=== PATIENT | female | born 1985 | race Caucasian/White ===

== ENCOUNTER 2022-05-12 23:56 | Emergency (ER) | payer MEDICAID, SELFPAY ==
[2022-05-12 23:57] VITALS: BP 158/97; PULSE 74; RESP 15; TEMP 36.8; O2SAT 95; BMI 33.1
--- NOTE | 2022-05-13 00:15 | CT_ITS ---
STUDY: CT ABDOMEN AND PELVIS WITHOUT CONTRAST REASON FOR EXAM: Female, 36 years old. Right flank pain. Elevated white blood cell count. Status post cholecystectomy and left oophorectomy. TECHNIQUE: Transaxial images were obtained from the dome of the diaphragm to the symphysis pubis without oral contrast, and without intravenous contrast. Sagittal and coronal images were reconstructed. Individualized dose optimization techniques were used for this CT. COMPARISON: None. FINDINGS: Partially visualized lower chest: Lung bases unremarkable. Liver: No concerning lesions. Gallbladder and biliary tree: Status post cholecystectomy. No biliary ductal dilation. No visible gallstones. Pancreas: No pancreatic lesions or inflammation. Spleen: Normal size, no splenic lesions. Adrenal glands: No concerning masses. Kidneys and ureters: No hydronephrosis or renal stones. No concerning masses. No ureteral dilation. Bowel: Normal appendix. No obstruction or inflammation of the bowel. Urinary bladder: Nondistended. No apparent stones or filling defects. Reproductive: Uterus unremarkable. Neither ovary identified. No suspicious pelvic mass. Vascular: No abdominal aortic aneurysm. Retroperitoneal and peritoneal spaces: Trace fluid in the pelvis within physiologic limits. No free air or extraluminal air or abscess. No adenopathy. Osseous: No acute osseous abnormality. Abdominal and pelvic wall: No concerning findings. Any findings described in the findings sections and not included in the impression are incidental and do not require imaging follow-up. CT/Abdomen/Pelvis without Cont IMPRESSION: No acute or concerning findings. Electronically Signed: Hari Mancuso MD at 1:34 EDT Reading Location ID and State: [facility] / [place] Tel , Service support ,
--- NOTE | 2022-05-13 00:23 | EDS_ITS ---
HPI HPI - GI History of Present Illness Chief Complaint: Flank Pain Informant: patient Abdominal Pain/Flank Pain Onset: Today Context: - (Awoke with symptoms) Timing: Continuous Quality: Aching Location: Right Flank (Mostly in back) Current Severity: Severe Maximum Severity: Severe Worsened by: Nothing Relieved by: Nothing Nausea/Vomiting/Emesis GI Symptom: Positive for Nausea and Vomiting Onset: Today Quality: Positive for Nonbilious Severity: Moderate Diarrhea/Melena/Hematochezia GI Symptom: Negative for Diarrhea, Melena or Hematochezia Associated Symptoms Associated Symptoms: Negative for Dysuria, Frequency, Hematuria or Urgency Narrative Narrative: Patient woke up with right back pain that feels like kidney pain that she has had in the past with pyelonephritis. No history of stones. She states that in the past, she has had multiple kidney infections, she has the same symptoms that she does today which is pain in her back, nausea, vomiting, and no urinary symp toms. She states her urine is darker than usual but otherwise unremarkable, no dysuria or urinary frequency/urgency. She states she has a little bit of discomfort in her right lower quadrant, but that usually goes away after she urinates, she gets that pain all the time when she holds it even when she is not having the symptoms she has been having today. [facility] Medical History (Updated 05/13/22 @ 01:[address] Fernando Jones MD) Borderline personality disorder delivery delivered Fibromyalgia Generalized anxiety disorder Hypoglycemia Medical History no medical history no medical history Home Medications hydroxyzine HCl 25 mg tablet 25 mg PO 4X/DAY PRN Anxiety 05/13/22 [History Last Taken Unknown] ondansetron 4 mg disintegrating tablet 8 mg PO Q8H PRN PRN Nausea #20 tabs 05/13/22 [Rx Last Taken Unknown] quetiapine 25 mg tablet (Seroquel) 25 mg PO DAILY 05/13/22 [History Last Taken Unknown] venlafaxine 75 mg tablet 75 mg PO DAILY 05/13/22 [History Last Taken Unknown] Allergy/AdvReac Type Severity Reaction Status Date / Time codeine Allergy Anaphylaxis Verified 05/13/22 00:11 hydrocodone [From Vicodin] Allergy Shortness Verified 05/13/22 00:11 of breath acetaminophen [From Tylenol] AdvReac Hives Verified 05/13/22 00:11 meperidine [From Demerol] AdvReac Rash Verified 05/13/22 00:11 oxycodone [From Percocet] AdvReac Rash Verified 05/13/22 00:11 promethazine [From Phenergan] AdvReac Hives Verified 05/13/22 00:11 Surgical History (Updated 05/13/22 @ 00:50 by Annie Dwyer) History of unilateral oophorectomy Hx of cholecystectomy Social History Smoking Status: Current every day smoker tobacco type: cigarettes ROS ROS ED Constitutional Constitutional ED: Denies chills or fever(s) Eyes Eyes: Denies change in vision or diplopia ENT ENT ED: Denies rhinorrhea or sore throat Cardiovascular Cardiovascular: Denies chest pain or palpitations Respiratory/Chest Respiratory/Chest: Denies cough or dyspnea Gastrointestinal Gastrointestinal: Reports abdominal pain, nausea and vomiting; Denies diarrhea Genitourinary Genitourinary ED: Reports as per HPI and flank pain; Denies dysuria, hematuria or urinary frequency Musculoskeletal Musculoskeletal: Reports back pain; Denies neck pain Integumentary Denies abscess or rash Neurologic Neurologic: Denies headache(s), paresthesias or weakness Psychiatric Psychiatric: Denies anxiety or suicidal thoughts EXAM Physical Exam Const Vital Signs: 05/12/22 23:57 05/13/22 00:09 Temperature 98.2 F Temperature Source Temporal Pulse Rate 74 Respiratory Rate 15 Respiratory Effort Normal Non-Labored Respiratory Pattern Normal Blood Pressure 158/97 H Blood Pressure Mean 117 Pulse Ox 95 Oxygen Delivery Method Room Air Positive well nourished, well developed and obese General Appearance ED: well developed and NAD Nutritional Appearance: obese HEENT Reports moist mucous membranes normocephalic and atraumatic Eyes PERRL and EOMs intact bilaterally Neck full ROM and supple Resp normal respiratory effort and clear to auscultation bilaterally Cardio regular rate, regular rhythm and no murmurs GI non-tender and non-distended Auscultation: normoactive bowel sounds Palpation: soft Back/Spine General Back: CVA tenderness right and other FROM Extremity normal to inspection General Extremety ED: Negative for edema, pulses abnormal or tenderness General Extremity: Negative for edema or pulses abnormal Neuro oriented x3, CN's II-XII intact bilaterally and no sensory deficits noted Sensorium / Orientation: awake and alert Motor Exam: strength 5/5 throughout Skin no rashes or lesions noted and no wounds MDM MDM MDM Narrative Medical decision making narrative: Patient symptoms were treated with fluids, Toradol, Zofran. She had improvement. She does have a leukocytosis, there are no bands, is neg ative, we did a CT scan because her urine really is unremarkable, and the CT is normal. Certainly she could have passed a stone before the pictures, or she has early pyelonephritis, there are 2+ bacteria on the urinalysis but this was a clean-catch specimen and there is very little in the way of markers for infection. Because of her leukocytosis I think it is reasonable to give her a single dose of Rocephin which will give her 24-hour coverage against the possibility of infection, and sent a culture. I am not sending her home on any antibiotics because it does not appear infected, unless the culture returns positive then she will be contacted. Lab Data Attestation: I reviewed the patient's lab results. Labs: Laboratory Results - last 24 hr 05/13/22 05/13/22 05/13/22 00:40 00:40 00:40 WBC 14.3 H RBC 5.48 H Hgb 13.0 Hct 41.4 MCV 75.5 L MCH 23.7 L MCHC 31.4 L RDW Std Deviation 45.1 H RDW Coeff of Jovita 16.9 H Plt Count 200 MPV 13.3 H Immature Gran % (Auto) 0.300 Neut % (Auto) 71.2 H Lymph % (Auto) 20.7 [place] % (Auto) 6.5 Eos % (Auto) 1.1 Baso % (Auto) 0.2 Absolute Neuts (auto) 10.2 H Absolute Lymphs (auto) 2.96 Nucleated RBC % 0 Sodium 140 Potassium 3.4 L Chloride 112 H Carbon Dioxide 23.0 Anion Gap 5 BUN 11 Creatinine 0.69 Estim Creat Clear Calc 92.34 Est GFR (MDRD) Af Amer 123 Est GFR (MDRD) Non-Af 102 BUN/Creatinine Ratio 16.0 Glucose 94 Calcium 8.8 Serum , Qual NEGATIVE Urine Color Urine Clarity Urine pH Ur Specific [place] Urine Protein Urine Glucose (UA) Urine Ketones Urine Occult Blood Urine Nitrite Urine Bilirubin Urine Urobilinogen Ur Leukocyte Esterase Urine RBC Urine WBC Ur Squamous Epith Cells Amorphous Sediment Urine Bacteria Urine Mucus 05/13/22 00:40 WBC RBC Hgb Hct MCV MCH MCHC RDW Std Deviation RDW Coeff of [place] Plt Count MPV Immature Gran % (Auto) Neut % (Auto) Lymph % (Auto) [place] % (Auto) Eos % (Auto) Baso % (Auto) Absolute Neuts (auto) Absolute Lymphs (auto) Nucleated RBC % Sodium Potassium Chloride Carbon Dioxide Anion Gap BUN Creatinine Estim Creat Clear Calc Est GFR (MDRD) Af Amer Est GFR (MDRD) Non-Af BUN/Creatinine Ratio Glucose Calcium Serum , Qual Urine Color Yellow Urine Clarity Clear Urine pH 5.0 Ur Specific [place] 1.020 Urine Protein Negative Urine Glucose (UA) Normal Urine Ketones 15 H Urine Occult Blood 10 H Urine Nitrite Negative Urine Bilirubin Negative Urine Urobilinogen Normal Ur Leukocyte Esterase 25 H Urine RBC 0-5 SEEN Urine WBC 0-5 SEEN Ur Squamous Epith Cells 5-10 SEEN Amorphous Sediment RARE Urine Bacteria 2+ Urine Mucus 2+ Radiography Diagnostic Testing: Clinical Impression(s) from Imaging Studies Abdomen/Pelvis CT 05/13/22 00:15 IMPRESSION: No acute or concerning findings. Electronically Signed: Hari Mancuso MD at 1:34 EDT Reading Location ID and State: [address] [place] [address] Tel , Service support , Discharge Plan Triage Chief Complaint: Flank Pain ED Provider: Fernando Jones Dx/Rx/DC Orders Clinical Impression: Acute right flank pain Instructions: ED Flank Pain, Uncertain Cause Prescriptions: New ondansetron [ondansetron] 4 MG tablet 8 mg PO Q8H PRN PRN (Reason: Nausea) Qty: 20 0RF No Action quetiapine [Seroquel] 25 mg Tablet 25 mg PO DAILY venlafaxine [Effexor] 75 mg Tablet 75 mg PO DAILY hydroxyzine HCl 25 mg Tablet 25 mg PO 4X/DAY PRN (Reason: Anxiety) Primary Care Provider: Care Physician,No Primary Referrals: Care Physician,No Primary [Primary Care Provider] - Doctor,Your [Non-Staff] - 3-5 Days if not improving Activity Restrictions/Additional Instructions: Ibuprofen and/or Tylenol as needed for pain Disposition Disposition: Home, Self Care
[2022-05-13] MEDS: Ondansetron 4 MG/2 ML Vial IV (00:26)
[2022-05-13] MEDS: Ketorolac 30 MG/ML Syringe IV (00:32)
[2022-05-13] MEDS: 0.9% Normal Saline 1,000 ML 250 ML IV (00:37)
[2022-05-13 00:45] LABS: Absolute Lymphocyte Count 2.96 X10^3/uL (0.83-4.51); Absolute Neutrophil Count 10.2 X10^3/uL (2.0-7.7); Basophil# 0.03 X10^3/uL; Basophil% 0.2 % (0-1); Eosinophil# 0.16 X10^3/uL; Eosinophils% 1.1 % (0-5); Hematocrit 41.4 % (37-47); Lymphocyte # 2.96 X10^3/ul (0.83-4.51); Lymphocyte % 20.7 % (19-41); Mean Corp Hgb Conc 31.4 g/dL (32-36); Mean Corpuscular Hgb 23.7 pg (27.0-32.0); Mean Corpuscular Volume 75.5 fL (81-99); Mean Platelet Vol. 13.3 fl (6.2-12.0); Monocyte# 0.93 X10^3/uL; Monocyte% 6.5 % (0-10); NRBC Flagged by Analyzer 0 % (0-5); Neutrophil # 10.18 X10^3/uL (2.7-7.7); Neutrophil % 71.2 % (47-70); Platelet Count 200 K/mm3 (150-450); RBC Distribution Width CV 16.9 % (11.6-14.6); RBC Distribution Width SD 45.1 fl (35.1-43.9); Red Blood Count 5.48 M/mm3 (4.2-5.4); White Blood Count 14.3 K/mm3 (4.4-11.0)
[2022-05-13 00:48] LABS: Color, Urine Yellow (Yellow); Glucose, Dipstick Normal (Normal); Ketone-Dipstick 15 mg/dl (Negative); Leukocyte Esterase-Dipstick 25 /ul (Negative); Nitrite-Dipstick Negative (Negative); Occult Blood-Urine 10 /ul (Negative); Protein-Dipstick Negative (Negative); Urine Bilirubin Dipstick Negative (Negative); Urine Clarity Clear (Clear); Urine Urobilinogen Normal (Normal)
[2022-05-13 00:51] LABS: Internal QC Validated? YES +Cl - CLEAR BKGD; Pregnancy, Serum, hCG Quali. NEGATIVE Negative
[2022-05-13 00:54] LABS: Amorphous Sediment RARE; Bacteria 2+ /hpf (None Seen); Mucous, Urine 2+ /hpf (<or=2+); Red Blood Cells-Urine 0-5 SEEN /hpf (0-5); Squamous Epithelial Cells - UA 5-10 SEEN /hpf (5-10); White Blood Cells 0-5 SEEN /hpf (0-5)
[2022-05-13 00:56] LABS: Anion Gap 5 (5-15); BUN 11 mg/dL (7-18); Calcium,Total 8.8 mg/dL (8.5-10.1); Chloride 112 mmol/L (98-107); Creatinine, Serum 0.69 mg/dL (0.55-1.02); EST Glomerular Filtration Rate 102 mL/min (>60); Est Glom Filt Rate - Afr Amer 123 mL/min (>60); Estimated Creatinine Clearance 92.34 ml/min; Glucose 94 mg/dL (74-106); Potassium 3.4 mmol/L (3.5-5.1); Sodium Level 140 mmol/L (136-145)
[2022-05-13] MEDS: Ceftriaxone 1 GM/50 ML BAG IV (01:52)
[2022-05-13 02:34] VITALS: BP 137/69; PULSE 74; RESP 15; O2SAT 95
== END 2022-05-13 03:03 | disposition home or self-care (01) ==
PROVIDERS: Emergency Provider Emergency Medicine; Visit Provider Emergency Medicine
DX: R10.9 Unspecified abdominal pain (principal); F60.3 Borderline personality disorder; F17.210 Nicotine dependence, cigarettes, uncomplicated; E66.9 Obesity, unspecified; F41.1 Generalized anxiety disorder; Z79.899 Other long term (current) drug therapy
CPT/HCPCS: 74176; 80048; 81001; 84703; 85025; 87086; 87088; 96361; 96365; 96375; 99284; J7030; A4216; J2405